=== PATIENT | female | born 1955 | race Caucasian/White ===

== ENCOUNTER 2019-11-29 14:54 | Outpatient (CLI) | payer MEDICARE ==
[2019-11-29 15:28] LABS: BASOPHILS # (AUTO) 0.2 10^3/uL (0.0-0.1); BASOPHILS % (AUTO) 0.8 %; EOSINOPHILS # (AUTO) 0.1 10^3/uL (0.0-0.7); EOSINOPHILS % (AUTO) 0.5 %; HGB - HEMOGLOBIN 9.8 g/dL (12.0-16.0); LYMPHOCYTES # (AUTO) 3.8 10^3/uL (1.5-3.5); LYMPHOCYTES % (AUTO) 20.9 %; MEAN CORPUSCULAR HEMOGLOBIN 31.6 pg (27.0-31.0); MEAN CORPUSCULAR VOLUME 98.7 fL (81.0-99.0); MEAN PLATELET VOLUME 8.8 fL (7.9-10.8); MONOCYTES # (AUTO) 1.3 10^3/uL (0.0-1.0); MONOCYTES % (AUTO) 7.3 %; NEUTROPHILS # (AUTO) 12.8 10^3/uL (1.5-6.6); NEUTROPHILS % (AUTO) 69.8 %; PLT - PLATELET COUNT 388 10^3/uL (130-450); RED CELL DISTRIBUTION WIDTH 12.7 % (12.0-15.0); WHITE BLOOD COUNT 18.3 x10^3/uL (4.8-10.8)
[2019-11-29 15:36] LABS: ALBUMIN 3.1 g/dL (3.2-5.5); ALBUMIN/GLOBULIN RATIO 0.5 (1.0-2.2); BILIRUBIN,TOTAL 0.4 mg/dL (0.2-1.0); CALCIUM 9.6 mg/dL (8.5-10.3); TOTAL PROTEIN 9.3 g/dL (6.7-8.2)
[2019-11-29 16:56] LABS: BILIRUBIN,URINE NEGATIVE (NEGATIVE); GLUCOSE, URINE (UA) NEGATIVE (NEGATIVE); KETONES,URINE (UA) NEGATIVE (NEGATIVE); LEUKOCYTE ESTERASE, URINE SMALL (NEGATIVE); NITRITE,URINE NEGATIVE (NEGATIVE); OCCULT BLOOD,URINE SMALL (NEGATIVE); PROTEIN,URINE TRACE mg/dL (NEGATIVE); UROBILINOGEN,URINE 0.2 (NORMAL) E.U./dL (NORMAL)
[2019-11-29 17:17] LABS: BACTERIA,URINE Rare /HPF (None Seen); CLARITY,URINE CLEAR (CLEAR); RBC,URINE 0-5 /HPF (0-5); SQUAMOUS EPITHELIAL CELL,UR RARE Squamous (<= Few)
== END 2019-11-29 14:55 | disposition home or self-care (01) ==
LOC: LAB 14:54
PROVIDERS: ATTEND Internal Medicine
DX: R50.9 Fever, unspecified (principal); R53.1 Weakness; A41.9 Sepsis, unspecified organism; R73.9 Hyperglycemia, unspecified; I95.9 Hypotension, unspecified
CPT/HCPCS: 36415; 80053; 81001; 85025; 87040; 87086

== ENCOUNTER 2020-03-06 15:14 | Outpatient (CLI) | payer MEDICARE ==
--- NOTE | 2020-03-06 15:57 | XRAY Report ---
PROCEDURE: Hip w/Pelvis 2-3V RT INDICATIONS: RT HIP PAIN TECHNIQUE: AP pelvis with lateral view(s) of the bilateral hip(s). COMPARISON: None. FINDINGS: Bones: No fractures or dislocations. Pelvic ring appears intact. No suspicious bony lesions. Moder ate to severe bilateral hip osteophytes including mild joint space narrowing, subchondral sclerosis a nd marginal osteophytosis. Lower lumbar spine degenerative disc disease. Soft tissues: The visualized bowel gas pattern is normal. No suspicious soft tissue calcifications. IMPRESSION: 1. No fracture. No acute osseous lesion. If there persistent symptoms or continued clinical concern f or pathology, then repeat plain film radiographs (7-10 days) or advanced imaging (CT, MR, bone scan) should be considered for further evaluation. 2. Osteoarthritis. Reviewed by: Donna Ryan MD, PhD on 03/06/2020 3:56 PM PST Approved by: Donna Ryan MD, PhD on 03/06/2020 3:56 PM PST Station ID: [id number]
== END 2020-03-06 15:15 | disposition home or self-care (01) ==
LOC: DI 15:14
PROVIDERS: ATTEND Internal Medicine
DX: M16.11 Unilateral primary osteoarthritis, right hip (principal)

== ENCOUNTER 2020-03-10 13:18 | Outpatient (CLI) | payer MEDICARE ==
--- NOTE | 2020-03-10 15:34 | Ultrasound Report ---
PROCEDURE: Duplex Ext Veins Right INDICATIONS: RT LEG PAIN TECHNIQUE: Real-time imaging, as well as color and pulse Doppler interrogation, were performed of the lower extr emity deep veins from the inguinal ligament to the popliteal fossa. COMPARISON: None. FINDINGS: The deep veins are normally compressible, and free of intraluminal thrombus. Color and pu lse Doppler demonstrate normal phasic intraluminal flow. There is normal augmentation response to di stal compression maneuver. IMPRESSION: Negative for deep venous thrombosis of the right lower extremity. Reviewed by: Tay Cooney MD on 03/10/2020 3:33 PM PST Approved by: Tay Cooney MD on 03/10/2020 3:33 PM PST Station ID: [id number]
== END 2020-03-10 13:19 | disposition home or self-care (01) ==
LOC: DI 13:18
PROVIDERS: ATTEND Internal Medicine
DX: M79.604 Pain in right leg (principal)

== ENCOUNTER 2020-03-12 13:16 | Outpatient (CLI) | payer MEDICARE ==
--- NOTE | 2020-03-12 14:01 | CT Report ---
PROCEDURE: PELVIS WO INDICATIONS: SEVERE RT HIP PAIN TECHNIQUE: Noncontrast 3 mm axial sections acquired through the bony pelvis, with coronal and sagittal reformatt ing. For radiation dose reduction, the following was used: automated exposure control, adjustment of mA and/or kV according to patient size. COMPARISON: None. FINDINGS: Image quality: Excellent. Bones: There is asymmetric right slightly greater than left hip joint osteoarthritis that is mild to moderate in prominence. A fracture is not seen, subluxation is not identified and no joint effusion or intra-articular loose body at the right hip is found. Degenerative disc disease at the lower third of the LS-spine is moderately severe, seen on the lateral region formation imaging. Soft tissues: There is no sign of mass impinging on the lumbosacral plexus, or inflammatory process deep within the pelvis. There is no definite soft tissue source of asymmetric right-sided pain. IMPRESSION: Asymmetric right greater than left hip joint osteoarthritis is mild to moderate in overall severity. There is also a prominent degree of degenerative low lumbosacral spine disc disease and facet osteoar thritis to the degree that nerve root impingement may be present as cause of the asymmetric right-new ed predominant pain. No trauma found. Reviewed by: Varun Robert MD on 03/12/2020 2:00 PM PST Approved by: Varun Robert MD on 03/12/2020 2:00 PM PST Station ID: [id number]
== END 2020-03-12 13:17 | disposition home or self-care (01) ==
LOC: DI 13:16
PROVIDERS: ATTEND Internal Medicine
DX: M16.0 Bilateral primary osteoarthritis of hip (principal)
CPT/HCPCS: 72192